=== PATIENT | female | born 1960 | race Caucasian/White ===

== ENCOUNTER 2018-10-17 15:35 | Emergency (ER) | payer BC, OTHER ==
[2018-10-17] MEDS ORDERED: METHYLPREDNISOLONE 125 MG INJ ONE (16:04)
[2018-10-17] MEDS ORDERED: FAMOTIDINE 20 MG/2 ML VIAL IV ONE (16:04)
[2018-10-17] MEDS ORDERED: DIPHENHYDRAMINE 50 MG/ML VIAL ONE (16:04)
[2018-10-17] MEDS ORDERED: hydrOXYzine HCl 25 MG TAB ONE (16:24)
[2018-10-17 16:34] LABS: Absolute Lymphocytes (CBC) 1.9 K/uL (0.7-4.9); Absolute Monocytes 0.4 K/uL (0.1-1.3); Absolute Neutrophil 3.3 K/uL (1.8-8.0); Basophils % 0.9 % (0-1.3); Eosinophils % 3.4 % (0-4.4); Hematocrit 40.1 % (36.0-45.0); Lymphocytes % 32.9 % (15.3-44.8); MPV 8.6 fL (7.6-11.3); Monocytes % 7.1 % (3.3-12.3); RBC Red Blood Cell Count 4.36 M/uL (3.86-4.86)
[2018-10-17 16:48] LABS: Protime INR 0.97
[2018-10-17 16:51] LABS: BUN Blood Urea Nitrogen 15 mg/dL (7-18); Bicarbonate 26 mmol/L (21-32); Glucose Level 102 mg/dL (74-106); Potassium 3.7 mmol/L (3.5-5.1); Sodium Level 140 mmol/L (136-145)
[2018-10-17] MEDS ORDERED: DEXAMETHASONE 10 MG/ML VIAL ONE (17:19)
--- NOTE | 2018-10-17 17:34 | EDPHYS ---
Physician Documentation [facility] Name: Serenity Nevarez Age: 58 yrs Sex: Female : 1960 Arrival Date: 10/17/2018 Time: 15:40 Bed 25 Private MD: Halina Doty H ED Physician Kong Chang HPI: 10/17 15:54 This 58 yrs old Female presents to ER via Ambulatory with complaints of Rash. rn 15:54 The patient's rash thought to be caused by an unknown cause. The rash is located on the rn right leg and left leg. The rash can be described as erythematous, urticarial. Onset: The symptoms/episode began/occurred just prior to arrival. Severity of symptoms: At their worst the symptoms were moderate in the emergency department the symptoms are unchanged. The patient has not experienced similar symptoms in the past. Reports at work, began to notice itching to legs, got worse, + scratching without relief, no trouble breathing, denies new exposure or medication/food. Not sure if she got into poison eveline or anything.. Historical: - Allergies: 15:45 PENICILLINS; jl7 - Home Meds: 15:45 None [Active]; jl7 - PMHx: 15:45 Anxiety; Diabetes - NIDDM; Hypertension; Hypothyroidism; UTI; jl7 - Immunization history:: Adult Immunizations up to date. - Social history:: Smoking status: Patient/guardian denies using tobacco. - Ebola Screening: : No symptoms or risks identified at this time. - Family history:: not pertinent. - Hospitalizations: : No recent hospitalization is reported. ROS: 15:54 Constitutional: Negative for fever, chills, and weight loss, Eyes: Negative for injury, rn pain, redness, and discharge, ENT: Negative for injury, pain, and discharge, Neck: Negative for injury, pain, and swelling, Cardiovascular: Negative for chest pain, palpitations, and edema, Respiratory: Negative for shortness of breath, cough, wheezing, and pleuritic chest pain, Abdomen/GI: Negative for abdominal pain, nausea, vomiting, diarrhea, and constipation, MS/Extremity: Negative for injury and deformity, Skin: + rash to legs Neuro: Negative for headache, weakness, numbness, tingling, and seizure. Exam: 15:54 Constitutional: This is a well developed, well nourished patient who is awake, alert, rn scatching legs Skin: Warm, dry, + diffuse faint erythema to bilateral lower legs below knees with excoriations, a few spots on left leg look slightly petechial. Vital Signs: 15:45 BP 153 / 95; Pulse 98; Resp 16 S; Temp 97.9(O); Pulse Ox 100% on R/A; Weight 72.57 kg jl7 (R); Height 6 ft. 1 in. (185.42 cm) (R); Pain 10/10; 17:31 BP 151 / 68; Pulse 91; Resp 16; Temp 98.1; Pulse Ox 98% on R/A; la1 15:45 Body Mass Index 21.11 (72.57 kg, 185.42 cm) jl7 MDM: 15:48 Patient medically screened. rn 17:32 Differential diagnosis: allergic reaction. Data reviewed: vital signs, nurses notes, learning facilitator test result(s), and as a result, I will discharge patient. Counseling: I had a detailed discussion with the patient and/or guardian regarding: the historical points, exam findings, and any diagnostic results supporting the discharge/admit diagnosis, lab results, the need for outpatient follow up, to return to the emergency department if symptoms worsen or persist or if there are any questions or concerns that arise at home. Response to treatment: the patient's symptoms have markedly improved after treatment, and as a result, I will discharge patient. ED course: Pt feels much better, no longer itching, will dc home with steroids and hydroxyzine for allergic reaction/dermatitis to unknown reason. . 10/17 15:53 Order name: CBC with Diff; Complete Time: 16:56 rn 10/17 15:53 Order name: Basic Metabolic Panel; Complete Time: 16:56 rn 10/17 15:53 Order name: Protime (+inr); Complete Time: 16:56 rn 10/17 15:53 Order name: Ptt, Activated; Complete Time: 16:56 rn 10/17 15:53 Order name: IV Start; Complete Time: 16:06 rn Administered Medications: 16:05 Drug: SOLU-Medrol 125 mg Route: IVP; Site: left antecubital; la1 17:31 Follow up: Response: No adverse reaction la1 16:05 Drug: Pepcid 20 mg Route: IVP; Site: left antecubital; la1 17:31 Follow up: Response: No adverse reaction la1 16:06 Drug: Benadryl 50 mg Route: IVP; Site: left antecubital; la1 17:31 Follow up: Response: No adverse reaction la1 16:16 Drug: hydrOXYzine 50 mg Route: PO; la1 17:31 Follow up: Response: No adverse reaction; Marked relief of symptoms la1 17:17 Drug: Decadron - Dexamethasone 10 mg Route: IVP; Site: left antecubital; la1 17:32 Follow up: Response: Adverse reaction, Physician notified la1 Disposition: 10/17/18 17:33 Discharged to Home. Impression: Dermatitis, unspecified, Urticaria, unspecified. - Condition is Stable. - Discharge Instructions: Hives, Rash. - Prescriptions for Hydroxyzine HCl 50 mg Oral Tablet - take 1 tablet by ORAL route every 8 hours As needed for itching; 20 tablet. Prednisone 20 mg Oral Tablet - take 3 tablet by ORAL route once daily for 5 days; 15 tablet. - Medication Reconciliation Form, Thank You Letter, Antibiotic Education, Prescription Opioid Use form. - Follow up: Private Physician; When: As needed; Reason: Recheck today's complaints, Re-evaluation by your physician. - Problem is new. - Symptoms have improved. Signatures: Dispatcher [employer] EDMS Kong Chang MD MD rn Attema, Lee, RN RN la1 Carlos Dewey RN RN jl7 Corrections: (The following items were deleted from the chart) 17:45 17:33 10/17/2018 17:33 Discharged to Home. Impression: Dermatitis, unspecified; la1 Urticaria, unspecified. Condition is Stable. Forms are Work release form, Medication Reconciliation Form, Thank You Letter, Antibiotic Education, Prescription Opioid Use. Follow up: Private Physician; When: As needed; Reason: Recheck today's complaints, Re-evaluation by your physician. Problem is new. Symptoms have improved. rn
--- NOTE | 2018-10-17 17:34 | ER ---
Nurse's Notes [facility] Name: Serenity Nevarez Age: 58 yrs Sex: Female : 1960 Arrival Date: 10/17/2018 Time: 15:40 Bed 25 Private MD: Halina Doty H Diagnosis: Dermatitis, unspecified;Urticaria, unspecified Presentation: 10/17 15:43 Presenting complaint: Patient states: Legs started itching 2 hours ago, right leg is jl7 worse. Took 2 Benadryl and put calamine lotion and cortisone cream a couple hours ago and it's still itching like crazy. Transition of care: patient was not received from another setting of care. Onset of symptoms was October 17, 2018. Risk Assessment: Do you want to hurt yourself or someone else? Patient reports no desire to harm self or others. Initial Sepsis Screen: Does the patient meet any 2 criteria? No. Patient's initial sepsis screen is negative. Does the patient have a suspected source of infection? No. Patient's initial sepsis screen is negative. Care prior to arrival: None. 15:43 Method Of Arrival: Ambulatory jl7 15:43 Acuity: HUSAM 4 jl7 Triage Assessment: 15:45 General: Appears in no apparent distress. uncomfortable, Behavior is cooperative. Pain: jl7 Complains of pain in right leg and left leg Pain currently is 10 out of 10 on a pain scale. Quality of pain is described as ITCHING. Neuro: Level of Consciousness is awake, alert, obeys commands, Oriented to person, place, time, situation. Derm: Rash noted that is urticaria, on right leg and left leg. Historical: - Allergies: 15:45 PENICILLINS; jl7 - Home Meds: 15:45 None [Active]; jl7 - PMHx: 15:45 Anxiety; Diabetes - NIDDM; Hypertension; Hypothyroidism; UTI; jl7 - Immunization history:: Adult Immunizations up to date. - Social history:: Smoking status: Patient/guardian denies using tobacco. - Ebola Screening: : No symptoms or risks identified at this time. - Family history:: not pertinent. - Hospitalizations: : No recent hospitalization is reported. Screenin:06 Abuse screen: Denies threats or abuse. Nutritional screening: No deficits noted. la1 Nutritional screening: No deficits noted. Tuberculosis screening: No symptoms or risk factors identified. Fall Risk None identified. Assessment: 16:06 General: Appears in no apparent distress. Behavior is calm, cooperative. Pain: Denies la1 pain. Neuro: Level of Consciousness is awake, alert, obeys commands, Oriented to person, place, time, situation. Cardiovascular: Capillary refill < 3 seconds Patient's skin is warm and dry. Respiratory: Airway is patent Respiratory effort is even, unlabored, Respiratory pattern is regular, symmetrical. GI: No signs and/or symptoms were reported involving the gastrointestinal system. : No signs and/or symptoms were reported regarding the genitourinary system. Derm: Rash noted that is itchy, red, urticaria, on right leg and left leg. Vital Signs: 15:45 BP 153 / 95; Pulse 98; Resp 16 S; Temp 97.9(O); Pulse Ox 100% on R/A; Weight 72.57 kg jl7 (R); Height 6 ft. 1 in. (185.42 cm) (R); Pain 10/10; 17:31 BP 151 / 68; Pulse 91; Resp 16; Temp 98.1; Pulse Ox 98% on R/A; la1 15:45 Body Mass Index 21.11 (72.57 kg, 185.42 cm) jl7 ED Course: 15:40 Patient arrived in ED. mr 15:41 Halina Doty DO is Private Physician. mr 15:45 Triage completed. jl7 15:45 Arm band placed on right wrist. jl7 15:47 Kong Chang MD is Attending Physician. rn 16:05 Matty Banerjee RN is Primary Nurse. la1 16:06 Call light in reach. la1 16:06 No provider procedures requiring assistance completed. Inserted saline lock: 22 gauge la1 in left antecubital area, using aseptic technique. Blood collected. 17:32 IV discontinued, intact, bleeding controlled, No redness/swelling at site. Pressure la1 dressing applied. Administered Medications: 16:05 Drug: SOLU-Medrol 125 mg Route: IVP; Site: left antecubital; la1 17:31 Follow up: Response: No adverse reaction la1 16:05 Drug: Pepcid 20 mg Route: IVP; Site: left antecubital; la1 17:31 Follow up: Response: No adverse reaction la1 16:06 Drug: Benadryl 50 mg Route: IVP; Site: left antecubital; la1 17:31 Follow up: Response: No adverse reaction la1 16:16 Drug: hydrOXYzine 50 mg Route: PO; la1 17:31 Follow up: Response: No adverse reaction; Marked relief of symptoms la1 17:17 Drug: Decadron - Dexamethasone 10 mg Route: IVP; Site: left antecubital; la1 17:32 Follow up: Response: Adverse reaction, Physician notified la1 Outcome: 17:32 Discharged to home ambulatory. la1 17:32 Condition: stable 17:32 Discharge instructions given to patient, Instructed on discharge instructions, follow up and referral plans. medication usage, Demonstrated understanding of instructions, follow-up care, medications, Prescriptions given X 2. 17:33 Discharge ordered by . rn 17:45 Patient left the ED. la1 Signatures: Jaz Lassiter Roman, MD MD rn Attema, Lee, RN RN la1 Calros Dewey RN RN jl7
[2018-10-17 18:38] VITALS: BP 151/68; TEMP 98.1; O2SAT 98
== END 2018-10-17 17:45 | disposition home or self-care (01) ==
LOC: ER 15:35
DX: L30.9 Dermatitis, unspecified (principal); L50.9 Urticaria, unspecified; I10 Essential (primary) hypertension; Z88.0 Allergy status to penicillin
CPT/HCPCS: 36415; 80048; 85025; 85610; 85730; 96374; 96375; 99284; J1100; J2930

== ENCOUNTER 2020-06-29 10:47 | Emergency (ER) | payer OTHER ==
--- NOTE | 2020-06-29 11:53 | RAD REPORT ---
EXAM DESCRIPTION: RAD - Chest Single View - 06/29/2020 11:37 am CLINICAL HISTORY: Dizziness Chest pain. COMPARISON: Chest Single View dated 03/27/2017; CHEST SINGLE VIEW dated 11/23/2015; CHEST PA AND LAT 2 VIEW dated 09/11/2012; CHEST SINGLE VIEW dated 06/04/2012 FINDINGS: Portable technique limits examination quality. Small calcified granuloma seen left mid lung. The lungs are otherwise clear. The heart is normal in s ize. No displaced fractures. IMPRESSION: No acute intrathoracic process suspected.
[2020-06-29] MEDS ORDERED: NA CHLORIDE 0.9% 1,000 ML ONE ×2 (12:01→12:46)
[2020-06-29 12:22] LABS: Absolute Lymphocytes (CBC) 1.5 K/uL (0.7-4.9); Basophils % 0.5 % (0-1.3); Hematocrit 41.6 % (36.0-45.0); Lymphocytes % 26.9 % (15.3-44.8); MPV 8.9 fL (7.6-11.3); Protime INR 1.03; RBC Red Blood Cell Count 4.62 M/uL (3.86-4.86)
[2020-06-29 12:43] LABS: ALT/SGPT 48 U/L (12-78); AST/SGOT 23 U/L (15-37); Albumin 3.8 g/dL (3.4-5.0); Alkaline Phosphatase 109 U/L (45-117); BUN Blood Urea Nitrogen 17 mg/dL (7-18); Bicarbonate 26 mmol/L (21-32); Bilirubin Direct 0.2 mg/dL (0-0.2); Bilirubin Total 0.4 mg/dL (0.2-1.0); Glucose Level 103 mg/dL (74-106); Magnesium 2.2 mg/dL (1.8-2.4); NT PRO-BNP 67 pg/mL (<125); Potassium 4.1 mmol/L (3.5-5.1); Protein, Total 7.7 g/dL (6.4-8.2); Sodium Level 137 mmol/L (136-145); Troponin (Emerg Dept Use Only) < 0.02 ng/mL (0.0-0.045)
--- NOTE | 2020-06-29 14:51 | EDPHYS ---
Physician Documentation [facility] Name: Serenity Nevarez Age: 59 yrs Sex: Female : 1960 Arrival Date: 06/29/2020 Time: 10:53 Bed 7 Private MD: Halina Doty H ED Physician Kong Chang HPI: 06/29 11:16 This 59 yrs old Female presents to ER via Ambulatory with complaints of Blood pm1 Pressure Problem, Dizziness. 11:16 The patient presents with sense of spinning. Onset: The symptoms/episode began/occurred pm1 3 day(s) ago. Context: occurred while the patient was changing position. just prior to the episode the patient experienced no apparent symptoms. Modifying factors: The symptoms are alleviated by lying down, the symptoms are aggravated by changing position. Associated signs and symptoms: Pertinent negatives: abdominal pain, chest pain, focal weakness, shortness of breath, syncope. Severity of symptoms: in the emergency department the symptoms are worse. Patient has been on a special diet and has been taking phentermine. Decreased appetite and has not been eating or drinking well. Historical: - Allergies: 11:07 PENICILLINS; iw ROS: 11:16 Constitutional: Negative for fever, chills, and weight loss, Eyes: Negative for injury, pm1 pain, redness, and discharge, ENT: Negative for injury, pain, and discharge, Neck: Negative for injury, pain, and swelling, Cardiovascular: Negative for chest pain, palpitations, and edema, Respiratory: Negative for shortness of breath, cough, wheezing, and pleuritic chest pain, Abdomen/GI: Negative for abdominal pain, nausea, vomiting, diarrhea, and constipation, Back: Negative for injury and pain, MS/Extremity: Negative for injury and deformity, Skin: Negative for injury, rash, and discoloration. 11:16 Neuro: Positive for dizziness, Negative for numbness, tingling, weakness. Exam: 11:16 Constitutional: This is a well developed, well nourished patient who is awake, alert, pm1 and in no acute distress. Head/Face: Normocephalic, atraumatic. Cardiovascular: Regular rate and rhythm with a normal S1 and S2. No gallops, murmurs, or rubs. Normal PMI, no JVD. No pulse deficits. Respiratory: Lungs have equal breath sounds bilaterally, clear to auscultation and percussion. No rales, rhonchi or wheezes noted. No increased work of breathing, no retractions or nasal flaring. Abdomen/GI: Soft, non-tender, with normal bowel sounds. No distension or tympany. No guarding or rebound. No evidence of tenderness throughout. Back: No spinal tenderness. No costovertebral tenderness. Full range of motion. Skin: Warm, dry with normal turgor. Normal color with no rashes, no lesions, and no evidence of cellulitis. MS/ Extremity: Pulses equal, no cyanosis. Neurovascular intact. Full, normal range of motion. 11:16 Neuro: Exam negative for acute changes, Orientation: is normal, Mentation: is normal, Motor: is normal, moves all fours, Sensation: is normal, no obvious gross deficits. Vital Signs: 11:06 BP 115 / 76; Pulse 088; Resp 16; Temp 97.5; Pulse Ox 100% on R/A; iw 11:37 BP 122 / 69 LA Supine; Pulse 82; Resp 16; Pulse Ox 99% on R/A; dh3 11:39 BP 105 / 53 LA Sitting; Pulse 91; Resp 17; Pulse Ox 100% on R/A; dh3 11:41 BP 77 / 46 LA Standing; Pulse 104; Resp 19; Pulse Ox 100% on R/A; dh3 12:18 BP 107 / 83; Pulse 78; Resp 18; Pulse Ox 99% on R/A; em 13:35 BP 124 / 62; Pulse 62; Resp 18; Pulse Ox 100% on R/A; Pain 0/10; em 15:03 BP 147 / 68 LA Supine; Pulse 74; Resp 16; Pulse Ox 100% on R/A; dh3 15:05 BP 131 / 78 LA Sitting; Pulse 79; Resp 17; Pulse Ox 100% on R/A; dh3 15:07 BP 118 / 65 LA Standing; Pulse 88; Resp 17; Pulse Ox 100% on R/A; dh3 MDM: 10:59 Patient medically screened. pm1 14:49 Data reviewed: vital signs. Data interpreted: Pulse oximetry: on room air is 100 %. pm1 Interpretation: normal. Counseling: I had a detailed discussion with the patient and/or guardian regarding: the historical points, exam findings, and any diagnostic results supporting the discharge/admit diagnosis, lab results, radiology results, the need for outpatient follow up, to return to the emergency department if symptoms worsen or persist or if there are any questions or concerns that arise at home. 14:49 ED course: Symptoms markedly improved with NS given in the ER. pm06/29 11:12 Order name: Basic Metabolic Panel; Complete Time: 12:44 pm06/29 11:12 Order name: CBC with Diff; Complete Time: 12:33 pm06/29 11:12 Order name: LFT's; Complete Time: 12:44 pm06/29 11:12 Order name: Magnesium; Complete Time: 12:44 pm06/29 11:12 Order name: NT PRO-BNP; Complete Time: 12:44 pm06/29 11:12 Order name: PT-INR; Complete Time: 12:33 pm06/29 11:12 Order name: Troponin (emerg Dept Use Only); Complete Time: 12:44 pm06/29 11:12 Order name: XRAY Chest (1 view); Complete Time: 12:03 pm06/29 11:12 Order name: EKG; Complete Time: 11:12 pm06/29 11:12 Order name: Cardiac monitoring; Complete Time: 12:11 pm06/29 11:12 Order name: EKG - Nurse/Tech; Complete Time: 12:00 pm06/29 11:12 Order name: TSH; Complete Time: 12:44 pm06/29 11:12 Order name: IV Saline Lock; Complete Time: 12:11 pm06/29 11:12 Order name: Labs collected and sent; Complete Time: 12:11 pm06/29 11:12 Order name: O2 Per Protocol; Complete Time: 12:01 pm06/29 11:12 Order name: O2 Sat Monitoring; Complete Time: 12:01 pm06/29 11:12 Order name: Orthostatic Blood Pressure; Complete Time: 12:00 pm1 Administered Medications: 12:10 Drug: NS 0.9% 1000 ml Route: IV; Rate: 1000 ml; Site: right forearm; em 13:30 Follow up: IV Status: Completed infusion; IV Intake: 1000ml em 13:39 Drug: NS 0.9% 1000 ml Route: IV; Rate: 1000 ml; Site: right forearm; em 15:10 Follow up: IV Status: Completed infusion; IV Intake: 1000ml em Disposition: 17:47 Co-signature as Attending Physician, Kong Chang MD. rn Disposition: 06/29/20 14:50 Discharged to Home. Impression: Orthostatic hypotension, Dehydration. - Condition is Stable. - Discharge Instructions: Dehydration, Adult, Orthostatic Hypotension, Rehydration, Adult. - Medication Reconciliation Form, Thank You Letter, Antibiotic Education, Prescription Opioid Use form. - Follow up: Emergency Department; When: As needed; Reason: Worsening of condition. Follow up: Private Physician; When: 2 - 3 days; Reason: Recheck today's complaints, Continuance of care, Re-evaluation by your physician. - Problem is new. - Symptoms have improved. Signatures: Dispatcher [employer] Ricky Sher RN RN em Williams, Irene, RN RN iw Nieto, Roman, MD MD rn Marinas, Patrick, OUTSOLE BEVELER OUTSOLE BEVELER pm1 Corrections: (The following items were deleted from the chart) 15:52 14:50 06/29/2020 14:50 Discharged to Home. Impression: Orthostatic em hypotensionDehydration. Condition is Stable. Forms are Medication Reconciliation Form, Thank You Letter, Antibiotic Education, Prescription Opioid Use. Follow up: Emergency Department; When: As needed; Reason: Worsening of condition. Follow up: Private Physician; When: 2 - 3 days; Reason: Recheck today's complaints, Continuance of care, Re-evaluation by your physician. Problem is new. Symptoms have improved. pm1
--- NOTE | 2020-06-29 14:51 | ER ---
Nurse's Notes [facility] Name: Serenity Nevarez Age: 59 yrs Sex: Female : 1960 Arrival Date: 06/29/2020 Time: 10:53 Bed 7 Private MD: Halina Doty H Diagnosis: Dehydration;Orthostatic hypotension Presentation: 06/29 11:04 Chief complaint: Patient states: had some low BP readings at home this morning, has iw been feeling weak, dizzy over the weekend, has been on on a diet and not eating as much or drinking as much fluids. Coronavirus screen: At this time, the client does not indicate any symptoms associated with coronavirus-19. Ebola Screen: Patient negative for fever greater than or equal to 101.5 degrees Fahrenheit, and additional compatible Ebola Virus Disease symptoms Patient denies exposure to infectious person. Patient denies travel to an Ebola-affected area in the 21 days before illness onset. No symptoms or risks identified at this time. Initial Sepsis Screen: Does the patient meet any 2 criteria? No. Patient's initial sepsis screen is negative. Does the patient have a suspected source of infection? No. Patient's initial sepsis screen is negative. Risk Assessment: Do you want to hurt yourself or someone else? Patient reports no desire to harm self or others. Onset of symptoms was June 27, 2020. 11:04 Method Of Arrival: Ambulatory iw 11:04 Acuity: HUSAM 3 iw Historical: - Allergies: 11:07 PENICILLINS; iw Screenin:30 Abuse screen: Denies threats or abuse. Nutritional screening: No deficits noted. em Tuberculosis screening: No symptoms or risk factors identified. Fall Risk Secondary diagnosis (15 points) dizziness . Assessment: 11:30 General: Appears in no apparent distress. comfortable, Behavior is calm, cooperative, em appropriate for age, Denies fever. Pain: Denies pain. Neuro: Level of Consciousness is awake, alert, obeys commands, Oriented to person, place, time, situation, Appropriate for age Reports dizziness. Cardiovascular: Capillary refill < 3 seconds Patient's skin is warm and dry. Respiratory: Airway is patent Respiratory effort is even, unlabored, Respiratory pattern is regular, symmetrical. GI: Patient currently denies nausea, vomiting. Derm: Skin is intact, is healthy with good turgor, Skin is pink, warm \T\ dry. Musculoskeletal: Capillary refill < 3 seconds, Range of motion: intact in all extremities. 12:37 Reassessment: Patient appears in no apparent distress at this time. Patient and/or em family updated on plan of care and expected duration. Pain level reassessed. Patient is alert, oriented x 3, equal unlabored respirations, skin warm/dry/pink. 13:43 Reassessment: Patient appears in no apparent distress at this time. Patient and/or em family updated on plan of care and expected duration. Pain level reassessed. Patient is alert, oriented x 3, equal unlabored respirations, skin warm/dry/pink. ambulated to restroom, reports feeling better. Vital Signs: 11:06 BP 115 / 76; Pulse 088; Resp 16; Temp 97.5; Pulse Ox 100% on R/A; iw 11:37 BP 122 / 69 LA Supine; Pulse 82; Resp 16; Pulse Ox 99% on R/A; dh3 11:39 BP 105 / 53 LA Sitting; Pulse 91; Resp 17; Pulse Ox 100% on R/A; dh3 11:41 BP 77 / 46 LA Standing; Pulse 104; Resp 19; Pulse Ox 100% on R/A; dh3 12:18 BP 107 / 83; Pulse 78; Resp 18; Pulse Ox 99% on R/A; em 13:35 BP 124 / 62; Pulse 62; Resp 18; Pulse Ox 100% on R/A; Pain 0/10; em 15:03 BP 147 / 68 LA Supine; Pulse 74; Resp 16; Pulse Ox 100% on R/A; dh3 15:05 BP 131 / 78 LA Sitting; Pulse 79; Resp 17; Pulse Ox 100% on R/A; dh3 15:07 BP 118 / 65 LA Standing; Pulse 88; Resp 17; Pulse Ox 100% on R/A; dh3 ED Course: 10:53 Patient arrived in ED. ds1 10:53 Halina Doty DO is Private Physician. ds1 10:56 Ricky Kay, RUBEN is Primary Nurse. em 10:59 Francisco Haines NP is PHCP. pm1 10:59 Kong Chang MD is Attending Physician. pm1 11:06 Triage completed. iw 11:30 Patient has correct armband on for positive identification. Placed in gown. Bed in low em position. Call light in reach. Side rails up X2. blueprinter on. Pulse ox on. NIBP on. 11:35 EKG done, by ED staff, reviewed by Francisco Haines NP. 3 11:36 XRAY Chest (1 view) In Process Unspecified. EDMS 11:47 Missed attempt(s): 20 gauge in left antecubital area. Bleeding controlled, band aid dh3 applied, catheter tip intact. 12:10 Initial lab(s) drawn, by me, sent to lab. Inserted saline lock: 22 gauge in right em forearm, using aseptic technique. Blood collected. 15:49 No provider procedures requiring assistance completed. IV discontinued, intact, em bleeding controlled, No redness/swelling at site. Pressure dressing applied. Administered Medications: 12:10 Drug: NS 0.9% 1000 ml Route: IV; Rate: 1000 ml; Site: right forearm; em 13:30 Follow up: IV Status: Completed infusion; IV Intake: 1000ml em 13:39 Drug: NS 0.9% 1000 ml Route: IV; Rate: 1000 ml; Site: right forearm; em 15:10 Follow up: IV Status: Completed infusion; IV Intake: 1000ml em Intake: 13:30 IV: 1000ml; Total: 1000ml. em 15:10 IV: 1000ml; Total: 2000ml. em Outcome: 14:50 Discharge ordered by MD. pm1 15:49 Discharged to home ambulatory, with family. em 15:49 Condition: stable 15:49 Discharge instructions given to patient, Instructed on discharge instructions, follow up and referral plans. Demonstrated understanding of instructions, follow-up care. 15:52 Patient left the ED. em Signatures: Dispatcher [employer] EDMA Ricky Kay RN RN em Sanford, Demi ds1 Ashley Mcneill RN RN iw Marinas, Patrick, NP WATER POLLUTION CONTROL INSPECTOR pm1 Adelita Amado 3
[2020-06-29 16:00] VITALS: TEMP 97.5
[2020-06-29 16:21] VITALS: O2SAT 100
[2020-06-29 16:24] VITALS: BP 118/65
--- NOTE | 2020-06-30 12:19 | EKG ---
Test Date: 2020-06-29 Test Time: 11:35:04 Control Technician: PARISA MEASUREMENT RESULTS: Intervals: Rate: 80 IA: 168 QRSD: 70 QT: 390 QTc: 449 [place]: P: 57 IA: 168 QRS: 59 T: 64 INTERPRETIVE STATEMENTS: Normal sinus rhythm Normal ECG Compared to ECG 03/27/2017 09:02:22 No significant changes Electronically Signed On 06-30-20 12:15:15 CDT by Lucio Powers
== END 2020-06-29 15:52 | disposition home or self-care (01) ==
LOC: ER 10:47
DX: I95.1 Orthostatic hypotension (principal); E86.0 Dehydration; Z88.0 Allergy status to penicillin
CPT/HCPCS: 96361; 93005; 85025; 80048; 36415; 83735; 85610; 80076; 84443; 84484; 83880; 71045; 96360; 99285; J7030 ×2

== ENCOUNTER 2023-06-08 07:50 | Emergency (ER) | payer OTHER ==
--- OUTSIDE RECORDS SUMMARY | 2023-06-08 07:53 | XMS REPORT | Continuity of Care Document ---
:1960 Author Organization [facility] t Address [address] [place] [address] [place] [id number] Care Team Providers Name Role Phone Mariano Reddy Attending Clinician Problems Condition Condition Condition Status Onset Resolution Last Treating Co mments Source Name Details Category Date Date Treatment Clinician Date Amnesia Amnesia Problem Active 2021-01-14 Me moria (finding) (finding) 21:34:46 l Active [place] Problem 01/14/2021 [facility] Asthma Asthma Problem Active 2021-01-14 Jim qamar (disorder) (disorder) 21:34:46 l Active [place] Problem 01/14/2021 [facility] Ataxia Ataxia Problem Active 2021-01-14 Mem oria (finding) (finding) 21:34:46 l Active [place] Problem 01/14/2021 [facility] Hypothyroi Hypothyro Problem Active 2021-01-14 Memoria dism idism 21:34:46 l (disorder) (disorder) He rmann Active Problem 01/14/2021 [facility] Lumbar Lumbar Problem Active 2021-01-14 Jim qamar radiculopa radiculopa 21:34:46 l thy thy Song (disorder) (disorder) Active Problem 01/14/2021 [facility] Lumbar Lumbar Problem Active 2021-01-14 Jim qamar spondylosi spondylosi 21:34:46 l s s [place] (disorder) (disorder) Active Problem 01/14/2021 [facility] Paresthesi Paresthes Problem Active 2021-01-14 Memoria a ia 21:34:46 l (finding) (finding) Herm lamar Active Problem 01/14/2021 [facility] Scoliosis Scoliosis Problem Active 2021-01-14 Memoria deformity deformity 21:34:46 l of spine of spine Claude n (disorder) (disorder) Active Problem 01/14/2021 [facility] Allergies, Adverse Reactions, Alerts Allergy Allergy Status Severity Reaction(s) Onset Inactive Treating Comm ents Source Name Type Date Date Clinician penicill penicill Active Memori a in in l [place] Social History Social Habit Start Date Stop Date Quantity Comments Source Social History 2020-12-04 2020-12-04 [facility] 14:26:43 14:26:43 Medications Ordered Filled Start Stop Current Ordering Indication Dosage Frequency Signature Comments Components Source Medication Medication Date Date Medication? 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, Weight acetaminoph Yes 30 mg =, Me moria en-codeine 2-09 PO, Q6H, 0 l #3 22:03: Refill(s) Song 00 Naproxen Yes 500 mg, Memori a 2-09 PO, BID, 0 l 22:03: Refill(s) Song 00 Trazodone Yes 100 mg, Memor ia 2-09 PO, Daily, l 22:03: 0 Song 00 Refill(s) 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 Yes 60 mg, PO, M emoria 2-09 Daily, 0 l 22:03: Refill(s) [place] 00 Vital Signs Vital Name Observation Time Observation Value Comments Source Systolic (mm Hg) 2020-12-04 14:24:00 Jim rial [place] Diastolic (mm Hg) 2020-12-04 14:24:00 Mem orial Song Heart Rate 2020-12-04 14:24:00 Memorial [place] Respitory Rate 2020-12-04 14:24:00 Memori al [place] Height 2020-12-04 14:24:00 175.26 cm Memorial [place] Weight 2020-12-04 14:24:00 Memorial Song BMI Calculated 2020-12-04 14:24:00 Memori al [place] Systolic (mm Hg) 2020-11-17 21:43:00 Jim rial Song Diastolic (mm Hg) 2020-11-17 21:43:00 Mem orial Song Heart Rate 2020-11-17 21:43:00 [facility] [place] Respitory Rate 2020-11-17 21:43:00 Memori al Song Height 2020-11-17 21:43:00 182.88 cm [facility] [place] Weight 2020-11-17 21:43:00 [facility] [place] BMI Calculated 2020-11-17 21:43:00 Memori al [place] Procedures Procedure Date / Time Performed Performing Clinician Sourevan e Appendectomy Memorial Song Encounters Start End Encounter Admission Attending Care Care Encounter Source Date/Time Date/Time Type Type Clinicians Facility Department ID 2022-09-15 Outpatient STREGENCY MERIDIAN [id number] Common 14:20:07 [id number] [facility] 2021-01-12 2021-01-12 Ambulatory nullFlavo MNA [id number] Memoria 14:45:00 14:45:00 Pre-Reg r Neurology 02 barbra Zuleta 2021-01-12 2021-01-12 Outpatient MHIE DEBBIE [id number] Memoria 09:45:00 09:45:00 02 barbra Zuleta 2021-01-12 2021-01-12 Outpatient ROSHAN ReddySCHJOSE ANGEL [id number] 09:45:00 09:45:00 Mariano Eva Barber 2020-12-04 2020-12-05 Outpatient nullFlavo MNA [id number] Memoria 14:15:00 05:59:59 r Neurology 01 l Donte Zuleta 2020-12-04 2020-12-04 Outpatient LEONARDA ReddySCHER MHMISCHER [id number] 08:15:00 23:59:59 Mariano 01 Sunil 2020-12-04 2020-12-04 Outpatient MHIE MHIE [id number] Memoria 08:15:00 08:15:00 01 barbra Zuleta 2020-12-01 2020-12-03 Outside nullFlavo MNA [id number] Memoria 19:50:14 05:59:59 Medical r Neurology 00 l Records Donte Zuleta 2020-12-01 2020-12-02 Outpatient MHMISCHER MHMISCHER [id number] 13:50:14 23:59:59 00 2020-11-17 2020-11-18 Outpatient nullFlavo MNA [id number] Memoria 21:30:00 05:59:59 r Neurology 00 l Donte Zuleta 2020-11-17 2020-11-17 Outpatient ROSHAN ReddySCHER [id number] 15:30:00 23:59:59 Mariano 00 Sunil 2020-11-17 2020-11-17 Outpatient MHGREGORIO LEWIS [id number] Memoria 15:30:00 15:30:00 00 l Song Results This patient has no known results.
[2023-06-08 08:29] LABS: Absolute Lymphocytes (CBC) 0.9 K/uL (0.7-4.9); Hematocrit 40.4 % (36.0-45.0); Lymphocytes % 16.1 % (15.3-44.8); MCV 91.4 fL (80-100); MPV 7.3 fL (7.6-11.3); Platelets 234 thou/uL (152-406); RBC Red Blood Cell Count 4.42 M/uL (3.86-4.86)
--- NOTE | 2023-06-08 08:30 | RAD REPORT ---
EXAM DESCRIPTION: Nathalia Single View06/08/2023 8:13 am CLINICAL HISTORY: Chest pain COMPARISON: 2019 FINDINGS: Lungs are mildly to moderately hyperaerated The lungs appear clear of acute infiltrate. The heart is normal size IMPRESSION: No acute abnormalities displayed
[2023-06-08 08:32] LABS: Protime INR 1.05
[2023-06-08 08:52] LABS: Albumin 3.9 g/dL (3.4-5.0); Bilirubin Direct 0.1 mg/dL (0-0.2); Bilirubin Indirect, Calculated 0.4 mg/dL (0.2-0.8); Bilirubin Total 0.5 mg/dL (0.2-1.0); Magnesium 2.5 mg/dL (1.6-2.4); Potassium 4.3 mEq/L (3.5-5.1); Protein, Total 7.4 g/dL (6.4-8.2); Troponin High Sensitivity 5.7 pg/mL (<58.9)
[2023-06-08 09:23] LABS: Specific Gravity 1.024 (1.005-1.030); Transitional Epithelial <5 /HPF (None Seen); Urine Bacteria <20 /HPF (<20); Urine Bilirubin NEGATIVE (Negative); Urine Blood Negative (Negative); Urine Clarity Extremely Turbid (Clear); Urine Color Yellow (Yellow); Urine Glucose NEGATIVE (Negative); Urine Mucus Slight /HPF (None Seen); Urine Protein TRACE (Negative); Urine RBC <5 /HPF (None Seen); Urine Urobilinogen Normal (Normal)
[2023-06-08] MEDS ORDERED: CEFTRIAXONE 1000 MG/VIAL ONE (09:54)
[2023-06-08] MEDS ORDERED: NA CHLORIDE 0.9% 1,000 ML ONE (09:55)
--- NOTE | 2023-06-08 10:12 | ER ---
Nurse's Notes [facility] Name: Serenity Nevarez Age: 62 yrs Sex: Female : 1960 Arrival Date: 06/08/2023 Time: 07:50 Bed 4 Private MD: Diagnosis: Dehydration;Orthostatic hypotension Presentation: 06/08 08:00 Chief complaint: Patient states: CP that radiates into L back since yesterday. Feels ll1 weak and dehydrated. Coronavirus screen: Vaccine status: Patient reports receiving the 2nd dose of the covid vaccine. Client denies travel out of the [place] in the last 14 days. At this time, the client does not indicate any symptoms associated with coronavirus-19. Ebola Screen: Patient denies travel to an Ebola-affected area in the 21 days before illness onset. Initial Sepsis Screen: Does the patient meet any 2 criteria? HR > 90 bpm. No. Patient's initial sepsis screen is negative. Does the patient have a suspected source of infection? No. Patient's initial sepsis screen is negative. Risk Assessment: Do you want to hurt yourself or someone else? Patient reports no desire to harm self or others. Onset of symptoms was June 07, 2023. 08:00 Method Of Arrival: Ambulatory ll1 08:00 Acuity: HUSAM 3 ll1 Triage Assessment: 08:01 General: Appears uncomfortable, Behavior is calm, cooperative, appropriate for age. ll1 General: Reports feeling dehydrated. Pain: Complains of pain in chest Pain currently is 8 out of 10 on a pain scale. Neuro: Reports weakness. Cardiovascular: Reports chest pain, fatigue. Historical: - Allergies: 07:59 PENICILLINS; ll1 - PMHx: 07:59 Anxiety; Diabetes - NIDDM; Hypertension; Hypothyroidism; UTI; COPD; ll1 - PSHx: 07:59 Appendectomy; leg SX; ll1 - Immunization history:: Client reports receiving the 2nd dose of the Covid vaccine. - Social history:: Smoking status: Patient denies any tobacco usage or history of. Screenin:24 [facility] ED Fall Risk Assessment (Adult) History of falling in the last 3 months, ld1 including since admission No falls in past 3 months (0 pts). Abuse screen: Denies threats or abuse. Denies injuries from another. Nutritional screening: No deficits noted. Tuberculosis screening: No symptoms or risk factors identified. Assessment: 08:24 General: Appears in no apparent distress. comfortable, Behavior is calm, cooperative, ld1 appropriate for age. Pain: Complains of pain in chest Pain does not radiate. Pain currently is 3 out of 10 on a pain scale. Quality of pain is described as throbbing, Pain began gradually, Is intermittent. Neuro: Level of Consciousness is awake, alert, obeys commands, Oriented to person, place, time, situation. Cardiovascular: Capillary refill < 3 seconds Patient's skin is warm and dry. Rhythm is sinus rhythm. Cardiovascular: Chest pain is described as mild. Respiratory: Airway is patent Respiratory effort is even, unlabored. GI: Abdomen is round non-distended. : No signs and/or symptoms were reported regarding the genitourinary system. EENT: No signs and/or symptoms were reported regarding the EENT system. Derm: No signs and/or symptoms reported regarding the dermatologic system. Musculoskeletal: No signs and/or symptoms reported regarding the musculoskeletal system. Vital Signs: 08:00 BP 120 / 59; Pulse 108; Resp 17; Temp 97.8; Pulse Ox 98% ; Weight 90.72 kg; Height 6 ll1 ft. 1 in. ; Pain 8/10; 08:00 BP 140 / 85 Supine; Pulse 104; ld1 08:04 BP 136 / 73 LA Sitting; Pulse 97; ld1 08:08 BP 81 / 37 Standing; Pulse 100; ld1 08:24 BP 132 / 84; Pulse 94; Resp 14; Pulse Ox 96% on R/A; ld1 08:59 BP 128 / 78; Pulse 95; Resp 16; Pulse Ox 100% on R/A; ld1 09:47 BP 127 / 86; Pulse 84; Resp 15; Pulse Ox 100% on R/A; ld1 10:31 BP 131 / 82; Pulse 82; Resp 18; Pulse Ox 99% on R/A; ko1 08:00 Body Mass Index 26.39 (90.72 kg, 185.42 cm) ll1 08:00 Pain Scale: Adult ll1 ED Course: 07:52 Patient arrived in ED. rg4 07:52 [facility] jh7 07:52 Kong Chang MD is Attending Physician. jh7 07:59 Arm band placed on Patient placed in an exam room, on a stretcher. ll1 08:01 Triage completed. ll1 08:15 XRAY Chest (1 view) In Process Unspecified. EDNY 08:22 Amparo Gamez, RN is Primary Nurse. ld1 08:22 No provider procedures requiring assistance completed. Inserted saline lock: 20 gauge ld1 in left antecubital area, using aseptic technique. Blood collected. 08:24 Patient has correct armband on for positive identification. Placed in gown. Bed in low ld1 position. Call light in reach. Side rails up X2. monitoring specialist on. Pulse ox on. NIBP on. Door closed. Noise minimized. Warm blanket given. 08:24 Patient maintains SpO2 saturation greater than 95% on room air. ld1 09:08 Urinalysis W/Microscopic Sent. ll1 10:31 Provided Education on: n/a. ko1 10:31 IV discontinued, intact, bleeding controlled, No redness/swelling at site. Pressure ko1 dressing applied. Administered Medications: 08:22 Drug: NS 0.9% IV 1000 ml Route: IV; Rate: 1 bolus; Site: left antecubital; ld1 09:47 Drug: Rocephin IV 1 grams Route: IV; Rate: 1 calculated rate; Site: left antecubital; ld1 09:47 Drug: NS 0.9% IV 1000 ml Route: IV; Rate: 1 bolus; Site: left antecubital; ld1 Medication: 08:24 VIS not applicable for this client. ld1 Outcome: 10:11 Discharge ordered by MD. pardo 10:31 Discharged to home ambulatory, with family. ko1 10:31 Condition: improved 10:31 Discharge instructions given to patient, family, Instructed on discharge instructions, follow up and referral plans. Demonstrated understanding of instructions, follow-up care. 10:32 Patient left the ED. ko1 Signatures: Dispatcher [employer] EDMS Alicia Simon rg4 Jose Guzman RN RN ll1 Amparo Gamez, RN RN ld1 Addie Jonas, ONCOLOGIST ONCOLOGIST 7 Aviva Case, RUBEN RN ko1
--- NOTE | 2023-06-08 10:12 | EDPHYS ---
Physician Documentation [facility] Name: Serenity Nevarez Age: 62 yrs Sex: Female : 1960 Arrival Date: 06/08/2023 Time: 07:50 Bed 4 Private MD: ED Physician Kong Chang HPI: 06/08 07:55 This 62 yrs old Female presents to ER via Ambulatory with complaints of Chest Pain, jh7 Back Pain. 07:55 Onset: The symptoms/episode began/occurred yesterday. Associated signs and symptoms: jh7 Pertinent positives: chest pain, Pertinent negatives: abdominal pain, headache, shortness of breath, sore throat, vomiting, wheezing. 62-year-old female presents for epigastric pain radiating to the left side of the chest and scapula. She denies shortness of breath. Reports a history of dehydration and states that she feels dehydrated and weak. Patient of Dr. Doty. History of COPD and appendectomy. Reports that symptoms started yesterday.. Historical: - Allergies: 07:59 PENICILLINS; ll1 - PMHx: 07:59 Anxiety; Diabetes - NIDDM; Hypertension; Hypothyroidism; UTI; COPD; ll1 - PSHx: 07:59 Appendectomy; leg SX; ll1 - Immunization history:: Client reports receiving the 2nd dose of the Covid vaccine. - Social history:: Smoking status: Patient denies any tobacco usage or history of. ROS: 07:55 Eyes: Negative for injury, pain, redness, and discharge, ENT: Negative for injury, jh7 pain, and discharge, Neck: Negative for injury, pain, and swelling, Respiratory: Negative for shortness of breath, cough, wheezing, and pleuritic chest pain, Abdomen/GI: Negative for abdominal pain, nausea, vomiting, diarrhea, and constipation. 07:55 MS/Extremity: Negative for injury and deformity, Skin: Negative for injury, rash, and discoloration. 07:55 Constitutional: Positive for fatigue, Negative for fever. 07:55 Cardiovascular: Positive for chest pain, Negative for orthopnea, palpitations. 07:55 Back: Positive for pain at rest. 07:55 Neuro: Positive for weakness, Negative for loss of consciousness, syncope, visual changes. 07:55 All other systems are negative. Exam: 07:55 Constitutional: This is a well developed, well nourished patient who is awake, alert, jh7 and in no acute distress. Head/Face: Normocephalic, atraumatic. Eyes: Pupils equal round and reactive to light, extra-ocular motions intact. Lids and lashes normal. Conjunctiva and sclera are non-icteric and not injected. Cornea within normal limits. Periorbital areas with no swelling, redness, or edema. Neck: Trachea midline, no thyromegaly or masses palpated, and no cervical lymphadenopathy. Supple, full range of motion without nuchal rigidity, or vertebral point tenderness. No Meningismus. Cardiovascular: Regular rate and rhythm with a normal S1 and S2. No gallops, murmurs, or rubs. Normal PMI, no JVD. No pulse deficits. Respiratory: Lungs have equal breath sounds bilaterally, clear to auscultation and percussion. No rales, rhonchi or wheezes noted. No increased work of breathing, no retractions or nasal flaring. Abdomen/GI: Soft, non-tender, with normal bowel sounds. No distension or tympany. No guarding or rebound. No evidence of tenderness throughout. Back: No spinal tenderness. No costovertebral tenderness. Full range of motion. Skin: Warm, dry with normal turgor. Normal color with no rashes, no lesions, and no evidence of cellulitis. MS/ Extremity: Pulses equal, no cyanosis. Neurovascular intact. Full, normal range of motion. Neuro: Awake and alert, GCS 15, oriented to person, place, time, and situation. Motor strength 5/5 in all extremities. Sensory grossly intact. Normal gait. 07:55 Constitutional: The patient appears alert, awake. Vital Signs: 08:00 BP 120 / 59; Pulse 108; Resp 17; Temp 97.8; Pulse Ox 98% ; Weight 90.72 kg; Height 6 ll1 ft. 1 in. ; Pain 8/10; 08:00 BP 140 / 85 Supine; Pulse 104; ld1 08:04 BP 136 / 73 LA Sitting; Pulse 97; ld1 08:08 BP 81 / 37 Standing; Pulse 100; ld1 08:24 BP 132 / 84; Pulse 94; Resp 14; Pulse Ox 96% on R/A; ld1 08:59 BP 128 / 78; Pulse 95; Resp 16; Pulse Ox 100% on R/A; ld1 09:47 BP 127 / 86; Pulse 84; Resp 15; Pulse Ox 100% on R/A; ld1 10:31 BP 131 / 82; Pulse 82; Resp 18; Pulse Ox 99% on R/A; ko1 08:00 Body Mass Index 26.39 (90.72 kg, 185.42 cm) ll1 08:00 Pain Scale: Adult ll1 MDM: 07:52 Patient medically screened. [facility] 09:55 Differential diagnosis: pneumonia UTI, acute NM, dehydration, rhabdomyolysis. Data [facility] reviewed: vital signs, nurses notes, lab test result(s), EKG, radiologic studies, plain films. I considered the following discharge prescriptions or medication management in the emergency department Medications were administered in the Emergency Department. See MAR. Independent interpretation of the following test(s) in the Emergency Department EKG: See my EKG interpretation above. Historians other than the Patient: Friend: . Care significantly affected by the following chronic conditions: Diabetes, Hypertension. Counseling: I had a detailed discussion with the patient and/or guardian regarding the historical points, exam findings, and any diagnostic results supporting the discharge/admit diagnosis, to return to the emergency department if symptoms worsen or persist or if there are any questions or concerns that arise at home. Response to treatment: the patient's symptoms have markedly improved after treatment. 06/08 08:00 Order name: Basic Metabolic Panel; Complete Time: 08:59 [facility] 06/08 08:00 Order name: CBC with Diff; Complete Time: 08:32 [facility] 06/08 08:00 Order name: LFT's; Complete Time: :59 [facility] 06/08 08:00 Order name: Magnesium; Complete Time: 08:59 [facility] 06/08 08:00 Order name: NT PRO-BNP; Complete Time: 08:59 [facility] 06/08 08:00 Order name: PT-INR; Complete Time: 08:32 [facility] 06/08 08:00 Order name: Troponin HS; Complete Time: 08:59 [facility] 06/08 08:00 Order name: CK; Complete Time: 08:59 [facility] 06/08 08:11 Order name: Urinalysis W/Microscopic; Complete Time: 09:25 [facility] 06/08 09:28 Order name: Urine Culture EDKS 06/08 08:00 Order name: XRAY Chest (1 view); Complete Time: 08:32 [facility] 06/08 08:00 Order name: EKG; Complete Time: 08:01 [facility] 06/08 08:00 Order name: Cardiac monitoring; Complete Time: 08:07 [facility] 06/08 08:00 Order name: EKG - Nurse/Tech; Complete Time: 08:07 [facility] 06/08 08:00 Order name: IV Saline Lock; Complete Time: 08:22 [facility] 06/08 08:00 Order name: Labs collected and sent; Complete Time: 08: [facility] 06/08 08:00 Order name: O2 Per Protocol; Complete Time: 08:07 [facility] 06/08 08:00 Order name: O2 Sat Monitoring; Complete Time: 08: [facility] 06/08 08:02 Order name: Orthostatics; Complete Time: 08: [facility] 06/08 09:05 Order name: Misc. Order: ambulate after fluids; Complete Time: 09:08 [facility] EC:04 Rate is 102 beats/min. Rhythm is regular. QRS [place] is Normal. SD interval is normal at [facility] 106 msec. QRS interval is normal at 70 msec. QT interval is normal at 346 msec. No Q waves. T waves are Normal. No ST changes noted. Clinical impression: Sinus tachycardia. Administered Medications: 08:22 Drug: NS 0.9% IV 1000 ml Route: IV; Rate: 1 bolus; Site: left antecubital; ld1 09:47 Drug: Rocephin IV 1 grams Route: IV; Rate: 1 calculated rate; Site: left antecubital; ld1 09:47 Drug: NS 0.9% IV 1000 ml Route: IV; Rate: 1 bolus; Site: left antecubital; ld1 Disposition: 10:42 Co-signature as Attending Physician, Kong Chang MD I reviewed the patient's care rn provided by the Advanced Practice Provider and agree with the diagnosis and treatment plan. Disposition Summary: 06/08/23 10:11 Discharge Ordered Location: Home [facility] Problem: new [facility] Symptoms: have improved jh7 Condition: Stable 7 Diagnosis - Dehydration jh7 - Orthostatic hypotension 7 Followup: [facility] - With: Private Physician - When: 2 - 3 days - Reason: Recheck today's complaints Discharge Instructions: - Discharge Summary Sheet 7 - Dehydration, Adult jh7 - Orthostatic Hypotension jh7 Forms: - Medication Reconciliation Form 7 - Thank You Letter jh7 - Patient Portal Instructions 7 - Leadership Thank You Letter 7 - Work release form ko1 Signatures: Dispatcher [employer] Kong Garza MD MD rn Lewis, Lynsay, RN RN ll1 Amparo Gamez RN RN ld1 Addie Jonas, SEARCH PLANNER [place] [id number]
[2023-06-08 11:10] VITALS: BP 131/82; O2SAT 99
--- NOTE | 2023-06-09 15:25 | EKG ---
Test Date: 2023-06-08 Test Time: 08:04:53 Sash Repairer: [facility] ISAAC MEASUREMENT RESULTS: Intervals: Rate: 102 NV: 160 QRSD: 70 QT: 346 QTc: 450 [place]: P: 65 NV: 160 QRS: 56 T: 56 INTERPRETIVE STATEMENTS: Sinus tachycardia Otherwise normal ECG Compared to ECG 06/29/2020 11:35:04 Sinus rhythm no longer present Electronically Signed On 06-09-23 15:22:02 CDT by Curt Fermin
== END 2023-06-08 10:32 | disposition home or self-care (01) ==
LOC: ER 07:50
DX: E86.0 Dehydration (principal); I95.1 Orthostatic hypotension; M54.9 Dorsalgia, unspecified; J44.9 Chronic obstructive pulmonary disease, unspecified; E11.9 Type 2 diabetes mellitus without complications; I10 Essential (primary) hypertension; Z88.0 Allergy status to penicillin
CPT/HCPCS: 93005; 87088; 85025; 81001; 87086; 80048; 36415; 83735; 82550; 85610; 80076; 87077; 87186; 84484; 83880; 71045; 96374; 99285; J7030; J0696

== ENCOUNTER 2024-12-24 05:06 | Emergency (ER) | payer OTHER ==
[2024-12-24 05:37] LABS: Absolute Eosinophils 0.1 K/uL (0-0.5); Absolute Lymphocytes (CBC) 0.6 K/uL (0.7-4.9); Absolute Monocytes 0.5 K/uL (0.1-1.3); Absolute Neutrophil 4.2 K/uL (1.8-8.0); Basophils % 0.4 % (0-1.3); Eosinophils % 2.7 % (0-4.4); Hemoglobin 12.7 g/dL (12.0-15.0); Lymphocytes % 11.3 % (15.3-44.8); MCH 30.7 pg (27.0-35.0); MCHC 35.4 g/dL (32.0-36.0); MCV 86.8 fL (80-100); MPV 8.1 fL (7.6-11.3); Monocytes % 8.3 % (3.3-12.3); Neutrophils % 77.3 % (41.7-73.7); Nucleated Red Blood Cells % 0.4 % (0-0); Platelets 184 thou/uL (152-406); RBC Red Blood Cell Count 4.14 M/uL (3.86-4.86); Red Cell Distribution Width 13.5 % (12.1-15.2)
[2024-12-24] MEDS ORDERED: NA CHLORIDE 0.9% 1,000 ML ONE (05:37)
[2024-12-24 05:51] LABS: Anion Gap 8.8 mEq/L (5.0-15.0); BUN Blood Urea Nitrogen 25 mg/dL (7-18); Bicarbonate 26 mEq/L (21-32); Glomerular Filtration Rate 72 ml/min (=/>90); Glucose Level 105 mg/dL (74-106); Potassium 3.8 mEq/L (3.5-5.1); Sodium Level 139 mEq/L (136-145); Troponin High Sensitivity < 3.0 pg/mL (<58.9)
--- NOTE | 2024-12-24 06:54 | ER ---
Nurse's Notes [facility] Name: Serenity Nevarez Age: 64 yrs Sex: Female : 1960 Arrival Date: 12/24/2024 Time: 05:06 Bed 18 Private MD: Diagnosis: Vasovagal Syncope Presentation: 12/24 05:10 Chief complaint: EMS states: pt calls because she had several syncopal episodes, rg5 complaints of pains in the both knees. 05:10 Coronavirus screen: Client denies travel out of the [place] in the last 14 days. Ebola rg5 Screen: Patient negative for fever greater than or equal to 101.5 degrees Fahrenheit, and additional compatible Ebola Virus Disease symptoms. Initial Sepsis Screen: Does the patient meet any 2 criteria? No. Patient's initial sepsis screen is negative. Does the patient have a suspected source of infection? No. Patient's initial sepsis screen is negative. Risk Assessment: Do you want to hurt yourself or someone else? Patient reports no desire to harm self or others. Onset of symptoms was December 24, 2024. Care prior to arrival: Medication(s) given: Normal saline infusion, 1000 mL, IV initiated. 20 GA, in the left antecubital area, Glucose check: 118. 05:10 Method Of Arrival: EMS: [facility] rg5 05:10 Acuity: HUSAM 3 rg5 Triage Assessment: 05:10 General: Appears in no apparent distress. comfortable, Behavior is calm, cooperative, rg5 appropriate for age. Pain: Complains of pain in right leg and left knee Pain currently is 5 out of 10 on a pain scale. Quality of pain is described as aching. EENT: No deficits noted. Neuro: Level of Consciousness is awake, alert, obeys commands, Oriented to person, place, time, situation, Reports dizziness, a syncopal episode. Cardiovascular: Denies chest pain, Patient's skin is warm and dry. Respiratory: Airway is patent Trachea midline Respiratory effort is even, unlabored. GI: Abdomen is round non-distended, Abd is soft and non tender. GI: Reports constipation. : No signs and/or symptoms were reported regarding the genitourinary system. Derm: Skin is intact, Skin is dry, Skin is normal. Musculoskeletal: Circulation, motion, and sensation intact. Range of motion: intact in all extremities. Historical: - Allergies: 05:10 PENICILLINS; rg5 - PMHx: 05:10 Anxiety; COPD; Diabetes - NIDDM; Hypertension; Hypothyroidism; UTI; rg5 - PSHx: 05:10 Appendectomy; Leg sx; rg5 - Immunization history:: Adult Immunizations up to date. - Infectious Disease History:: Denies. - Social history:: Smoking status: Patient denies any tobacco usage or history of. Screenin:10 [facility] ED Fall Risk Assessment (Adult) History of falling in the last 3 months, rg5 including since admission Yes- fall prone (multiple falls) (3 pts) Confusion or Disorientation No (0 pts) Intoxicated or Sedated No (0 pts) Impaired Gait Yes (1 pt) Mobility Assist Device Used Yes (1 pt) Altered Elimination No (0 pt) Score/Fall Risk Level 0 - 2 = Low Risk Oriented to surroundings, Maintained a safe environment, Hourly rounding (assess needs \T\ fall precautionary measures) done. Abuse screen: Denies threats or abuse. Nutritional screening: No deficits noted. Tuberculosis screening: No symptoms or risk factors identified. Assessment: 05:23 General: Appears in no apparent distress. Neuro: Reports dizziness, a syncopal episode. rg5 Cardiovascular: Denies chest pain, Rhythm is sinus rhythm. 06:09 Reassessment: No changes from previously documented assessment. Patient and/or family rg5 updated on plan of care and expected duration. Pain level reassessed. Patient is alert, oriented x 3, equal unlabored respirations, skin warm/dry/pink. 07:00 Reassessment: DC ON HOLD FOR IVF COMPLETION. bp Vital Signs: 05:10 BP 133 / 78; Pulse 92; Resp 18; Temp 98.6; Pulse Ox 98% on R/A; Weight 90.72 kg; Height rg5 6 ft. 1 in. ; Pain 5/10; 06:09 BP 121 / 77; Pulse 88; Resp 18; Pulse Ox 97% on R/A; Pain 0/10; rg5 05:10 Body Mass Index 26.39 (90.72 kg, 185.42 cm) rg5 05:10 Pain Scale: Adult rg5 06:09 Pain Scale: Adult rg5 ED Course: 05:09 Patient arrived in ED. ec2 05:09 Vasquez Ervin MD is Attending Physician. ec2 05:09 Gaurav David, RN is Primary Nurse. rg5 05:10 Arm band placed on right wrist. EKG completed in triage. Results shown to MD. rg5 05:10 Patient has correct armband on for positive identification. Bed in low position. Call rg5 light in reach. Side rails up X 1. Door closed. Noise minimized. Warm blanket given. 05:10 No provider procedures requiring assistance completed. Maintain EMS IV. Dressing rg5 intact. Good blood return noted. Site clean \T\ dry. Gauge \T\ site: 20 g Left AC. Flushed with 10 mL NS. 05:18 Triage completed. rg5 05:23 EKG done, by ED staff, reviewed by Vasquez Ervin MD. oe 05:50 Basic Metabolic Panel Sent. oe 05:50 Troponin HS Sent. oe 06:36 XRAY Chest (1 view) In Process Unspecified. EDMS 07:10 Provided Education on: post er care. rg5 07:10 IV discontinued, bleeding controlled, No redness/swelling at site. Pressure dressing rg5 applied. Administered Medications: 05:14 Drug: NS 0.9% IV 2000 ml IV at 2 bolus Per protocol; to be given as a bolus over 60 rg5 minutes Route: IV; Rate: 2 bolus; Site: left antecubital; 06:58 Follow up: IV Status: Completed infusion; IV Intake: 2000ml rg5 Medication: 05:23 VIS not applicable for this client. rg5 Point of Care Testing: Blood Glucose: 05:10 Blood Glucose: 118 mg/dL; rg5 Ranges: Intake: 06:58 IV: 2000ml; Total: 2000ml. rg5 Outcome: 06:53 Discharge ordered by . ec2 07:10 Discharged to home ambulatory, rg5 07:10 Condition: stable 07:10 Discharge instructions given to patient, Instructed on discharge instructions, follow up and referral plans. 07:52 Patient left the ED. bp Signatures: Dispatcher [employer] Bridgre Pereira Brian, RN RN bp Vasquez Ervin MD MD ec2 Gaurav David, RN RN rg5 Corrections: (The following items were deleted from the chart) 06:16 05:23 Cardiovascular: Denies chest pain, Rhythm is rg5 rg5
--- NOTE | 2024-12-24 06:54 | EDPHYS ---
Physician Documentation [facility] Name: Serenity Nevarez Age: 64 yrs Sex: Female : 1960 Arrival Date: 12/24/2024 Time: 05:06 Bed 18 Private MD: ED Physician Vasquez Ervin HPI: 12/24 05:12 This 64 yrs old Female presents to ER via Unassigned with complaints of ec2 syncope. 05:12 Patient arrives today after syncopal episode. Patient reports she has dry mouth, states ec2 that she felt lightheaded when she stands. Denies any chest pain or shortness of breath, denies abdominal pain, no nausea or vomiting or diarrhea. No urinary complaints.. Historical: - Allergies: 05:10 PENICILLINS; rg5 - PMHx: 05:10 Anxiety; COPD; Diabetes - NIDDM; Hypertension; Hypothyroidism; UTI; rg5 - PSHx: 05:10 Appendectomy; Leg sx; rg5 - Immunization history:: Adult Immunizations up to date. - Infectious Disease History:: Denies. - Social history:: Smoking status: Patient denies any tobacco usage or history of. ROS: 05:12 Constitutional: as per hpi ec2 Exam: 05:12 Constitutional: GEN: NAD Head: atraumatic Eyes: EOMI Ears: External ears are ec2 normal. CV: regular rate LUNGS: no respiratory distress ABD: non-distended SKIN: no evidence of rashes MSK: no evidence of trauma Vital Signs: 05:10 BP 133 / 78; Pulse 92; Resp 18; Temp 98.6; Pulse Ox 98% on R/A; Weight 90.72 kg; Height rg5 6 ft. 1 in. ; Pain 5/10; 06:09 BP 121 / 77; Pulse 88; Resp 18; Pulse Ox 97% on R/A; Pain 0/10; rg5 05:10 Body Mass Index 26.39 (90.72 kg, 185.42 cm) rg5 05:10 Pain Scale: Adult rg5 06:09 Pain Scale: Adult rg5 MDM: 05:09 Medical Screening Exam initiated ec2 05:13 Data reviewed: vital signs, nurses notes. ED course: Patient arrives today for ec2 evaluation after syncopal episode. Examination yields well-appearing nontoxic individuals otherwise in no acute distress with reassuring examination. Will obtain lab work, EKG. DDx include processes such as anemia, electrolyte disturbances, dehydration.. 05:37 ED course: EKG independently reviewed and interpreted by me, shows normal sinus rhythm, ec2 rate of 88, no acute ST segment elevations, intervals are nonactionable.. 06:53 ED course: Patient ambulatory with improvement in symptoms and no recurrence of ec2 lightheadedness, will discharge home. Return precautions given.. 12/24 05:09 Order name: Basic Metabolic Panel; Complete Time: 05:53 ec2 12/24 05:09 Order name: CBC with Diff; Complete Time: 05:40 ec2 12/24 05:09 Order name: Troponin HS; Complete Time: 05:53 ec2 12/24 05:09 Order name: XRAY Chest (1 view); Complete Time: 07:36 ec2 12/24 05:09 Order name: Cardiac monitoring; Complete Time: 05:14 ec2 12/24 05:09 Order name: EKG - Nurse/Tech; Complete Time: 05:14 ec2 12/24 05:09 Order name: IV Saline Lock; Complete Time: 05:14 ec2 12/24 05:09 Order name: Labs collected and sent; Complete Time: 05:14 ec2 12/24 05:09 Order name: O2 Per Protocol; Complete Time: 05:14 ec2 12/24 05:09 Order name: O2 Sat Monitoring; Complete Time: 05:14 ec2 12/24 06:35 Order name: Misc. Order: ambulate; Complete Time: 06:58 ec2 12/24 07:10 Order name: Labs - recollect needed: recollect uring; Complete Time: 07:11 bd Administered Medications: 05:14 Drug: NS 0.9% IV 2000 ml IV at 2 bolus Per protocol; to be given as a bolus over 60 rg5 minutes Route: IV; Rate: 2 bolus; Site: left antecubital; 06:58 Follow up: IV Status: Completed infusion; IV Intake: 2000ml rg5 Point of Care Testing: Blood Glucose: 05:10 Blood Glucose: 118 mg/dL; rg5 Ranges: Critical Glucose Levels:Adult <50 mg/dl or >400 mg/dl <40 mg/dl or >180 mg/dl Disposition Summary: 03/18/25 06:53 Discharge Ordered Notes: Location: Home ec2 Condition: Stable ec2 Diagnosis - Vasovagal Syncope ec2 Followup: ec2 - With: Private Physician - When: - Reason: Re-evaluation by your physician Discharge Instructions: - Discharge Summary Sheet ec2 - Syncope, [id number] ec2 Forms: - Medication Reconciliation Form ec2 - Antibiotic Education ec2 - Prescription Opioid Use ec2 - Patient Portal Instructions ec2 - Leadership Thank You Letter ec2 Signatures: Dispatcher [employer] EDMS Kayleigh Cifuentes Edwin, MD MD ec2 Gaurav David RN RN rg5 Corrections: (The following items were deleted from the chart) 05:10 05:10 Chest Single View+RAD.RAD.BRZ ordered. EDMS EDMS 05:10 05:10 Urinalysis W/Microscopic+U.LAB.BRZ ordered. EDMS EDMS
--- NOTE | 2024-12-24 07:33 | RAD REPORT ---
Procedure: Chest Single View HISTORY: Syncope COMPARISON: 2022 FINDINGS: The lungs appear clear of acute infiltrate. No significant pleural effusion noted. The heart is normal size. IMPRESSION: No acute abnormality is displayed.
[2024-12-24 08:35] VITALS: TEMP 98.6
[2024-12-24 08:36] VITALS: BP 121/77; O2SAT 97
--- NOTE | 2024-12-25 12:33 | EKG ---
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
== END 2024-12-24 07:52 | disposition home or self-care (01) ==
LOC: ER 05:06
DX: R55 Syncope and collapse (principal); I10 Essential (primary) hypertension; F41.9 Anxiety disorder, unspecified
CPT/HCPCS: 96361; 93005; 85025; 80048; 36415; 84484; 71045; 96360; 99284; J7030

== ENCOUNTER 2025-07-14 10:33 | Emergency (ER) | payer OTHER ==
--- OUTSIDE RECORDS SUMMARY | 2025-07-14 10:37 | XMS REPORT | Continuity of Care Document ---
Author Name Unknown Address [address] [address] [address] [place] [address] [facility] Address [address] [address] [address] [place] [address] Care Team Providers Care River Captain Name Role Phone Leela Mitchell Attending Clinician Unavail able Problems Condition Name Condition Details Condition Category Status Onset Date Resolution Date Last Treatment Date Treating Clinician Comments Source Depressive disorder Depressive Disorder Problem Active 03-12 00:00: 00 [facility] [id number] Closed displaced fracture of fourth metatarsal bone of right foot, initial encounter Problem [facility] [id number] Closed displaced fracture of third metatarsal bone of right foot, initial encounter Problem [facility] [id number] Closed displaced fracture of second metatarsal bone of right foot, initial encounter Problem [facility] [id number] Chronic fatigue Problem [facility] [id number] Atrophic vaginitis Problem [facility] [id number] Major depressive disorder with single episode, in full remission Problem [facility] [id number] Lumbago with sciatica, right side Problem [facility] [id number] Pulmonary emphysema, unspecifie d emphysema type Problem [facility] [id number] MICHELLE (generaliz ed anxiety disorder) Problem [facility] [id number] Other chronic pain Problem [facility] [id number] Lumbago with sciatica, left side Problem [facility] [id number] Vitamin D insufficie ncy Problem [facility] [id number] Other obesity due to excess calories Problem [facility] [id number] Hyperlipid emia, mixed Problem [facility] 6826016 Primary insomnia Problem [facility] [id number] Acquired hypothyroi dism Problem Common [facility] [id number] Essential hypertensi on Problem [facility] [id number] BMI 32.0-32.9, adult Problem [facility] [id number] Other idiopathic scoliosis, unspecifie d spinal region Problem [facility] Ataxia (finding) Ataxia (finding) Active Problem 01/14/2021 [facility] Problem Active 2021-01-14 21:34:46 [facility] Hypothyroi dism (disorder) Hypothyroi dism (disorder) Active Problem 01/14/2021 [facility] Problem Active 2021-01-14 21:34:46 [facility] Lumbar radiculopa thy (disorder) Lumbar radiculopa thy (disorder) Active Problem 01/14/2021 [facility] Problem Active 2021-01-14 21:34:46 Mem[facility] Lumbar spondylosi s (disorder) Lumbar spondylosi s (disorder) Active Problem 01/14/2021 [facility] Problem Active 2021-01-14 21:34:46 [facility] Paresthesi a (finding) Paresthesi a (finding) Active Problem 01/14/2021 [facility] Problem Active 2021-01-14 21:34:46 [facility] Scoliosis deformity of spine (disorder) Scoliosis deformity of spine (disorder) Active Problem 01/14/2021 [facility] Problem Active 2021-01-14 21:34:46 [facility] Amnesia (finding) Amnesia (finding) Active Problem 01/14/2021 [facility] Problem Active 2021-01-14 21:34:46 [facility] Asthma (disorder) Asthma (disorder) Active Problem 01/14/2021 [facility] Problem Active 2021-01-14 21:34:46 Bong Zuleta Allergies, Adverse Reactions, Alerts Allergy Name Allergy Type Status Severity Reaction(s) Onset Date Inactive Date Treating Clinician Comments Source PENICILL INS Allergy to substanc e Active [facility] penicill in penicill in Active Bong Zuleta [id number] Drug allergy Active Unknown [facility] Social History Social Habit Start Date Stop Date Quantity Comments Source Sex Assigned At [facility] History of Tobacco Use [facility] Social History 2020-12-04 14:26:43 2020-12-04 14:26:43 [facility] Smoking Status Start Date Stop Date Source Never Smoker [facility] Former Smoker 2024-03-26 00:00:00 2024-03-26 00:00:00 [facility] Medications Ordered Medication Name Filled Medication Name Start Date Stop Date Current Medication? Ordering Clinician Indication Dosage Frequency Signature (SIG) Comments Components Source Ketorolac Tromethamin e Ketorolac Tromethamin e 02-26 00:00: 00 No 60mg [facility] busPIRone HCl 10 MG busPIRone HCl 10 MG 01-01 00:00: 00 No 1{table t} BID busPIRone HCl 10 MG Aspirin 81 81 MG Aspirin 81 81 MG 01-01 00:00: 00 No 1{table t} QD Aspirin 81 81 MG Carisoprodo l 350 MG Carisoprodo l 350 MG 01-01 00:00: 00 No BID Carisoprod ol 350 MG Vitamin D (Cholecalci ferol) 50 MCG (1999) Vitamin D (Cholecalci ferol) 50 MCG (1999) 3- 00:00: 00 No 1{capsu le} QD Vitamin D (Cholecalc iferol) 50 MCG (1999) baclofen 10 mg oral tablet 12-08 15:23: 00 Yes 10 mg = 1 tab, PO, BID, # 60 tab, 2 Refill(s), Pharmacy: [facility] #[id number], 175.26, cm, 12/04/20 8:24:00 [employer], Height, 94.545, kg, 12/04/20 8:24:00 [employer], Weight Bong Zuleta gabapentin 300 MG Oral Capsule 12-04 15:15: 00 Yes 300 mg = 1 cap, PO, BID, # 60 cap, 3 Refill(s), Pharmacy: [facility] #[id number], 175.26, cm, 12/04/20 8:24:00 [employer]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 bisoprolol fumarate 10 mg tablet Take 1 tablet every day by oral route. No 1 Q1D bisoprolol fumarate 10 mg tablet Take 1 tablet every day by oral route. [facility] doxepin doxepin No doxepin [facility] estradiol 0.01% (0.1 mg/gram) vaginal cream Insert 0.5 g 3 times a week by vaginal route at bedtime for 30 days. estradiol 0.01% (0.1 mg/gram) vaginal cream Insert 0.5 g 3 times a week by vaginal route at bedtime for 30 days. No .5g Q56H estradiol 0.01% (0.1 mg/gram) vaginal cream Insert 0.5 g 3 times a week by vaginal route at bedtime for 30 days. [facility] HYDROcodone -Acetaminop hen 7.5-325 MG HYDROcodone -Acetaminop hen 7.5-325 MG No 1{table t_as_ne eded} BID HYDROcodon e-Acetamin ophen 7.5-325 MG Pravastatin Sodium 20 MG Pravastatin Sodium 20 MG No 1{table t} QD Pravastati n Sodium 20 MG Amitriptyli ne HCl 25 MG Amitriptyli ne HCl 25 MG No 1{table t_at_be dtime} QD Amitriptyl ine HCl 25 MG Doxepin HCl 50 MG Doxepin HCl 50 MG No 1{capsu le_at_b edtime} QD Doxepin HCl 50 MG Albuterol Sulfate HFA 108 (90 Base) MCG/ACT Albuterol Sulfate HFA 108 (90 Base) MCG/ACT No 1{puff_ as_need ed} 6xD Albuterol Sulfate HFA 108 (90 Base) MCG/ACT DULoxetine HCl 30 MG DULoxetine HCl 30 MG No 1{capsu le} QD DULoxetine HCl 30 MG pravastatin 20 mg tablet Take 1 tablet every day by oral route. pravastatin 20 mg tablet Take 1 tablet every day by oral route. No 1 Q1D pravastati n 20 mg tablet Take 1 tablet every day by [facility] route. [facility] D Vitamin D No Vitamin D [facility] Vital Signs Vital Name Observation Time Observation Value Comments S ource Body Weight 2024-03-12 00:00:00 231 [lb_av] [facility] BP Diastolic 2024-03-12 00:00:00 68 mm[Hg] [facility] BMI (Body Mass Index) 2024-03-12 00:00:00 31.3 kg/m2 [facility] Height 2024-03-12 00:00:00 72 [in_i] [facility] BP Systolic 2024-03-12 00:00:00 145 mm[Hg] [facility] height 2024-02-27 14:40:00 70 [in_i] Commo n [facility] weight 2024-02-27 14:40:00 229 [lb_av] Comm on [facility] temperature 2024-02-27 14:40:00 97.7 [degF] Com mon [facility] bmi 2024-02-27 14:40:00 32.85 kg/m2 Comm on [facility] oximetry 2024-02-27 14:40:00 96 % Commo n [facility] respiratory rate 2024-02-27 14:40:00 17 /min [facility] blood pressure systolic 2024-02-27 14:40:00 126 mm[Hg] [facility] blood pressure diastolic 2024-02-27 14:40:00 68 mm[Hg] [facility] height 2024-01-02 14:00:00 70 [in_i] Commo n [facility] weight 2024-01-02 14:00:00 224 [lb_av] Comm on [facility] temperature 2024-01-02 14:00:00 98.1 [degF] Com mon [facility] bmi 2024-01-02 14:00:00 32.14 kg/m2 Comm on [facility] oximetry 2024-01-02 14:00:00 96 % Commo n [facility] respiratory rate 2024-01-02 14:00:00 17 /min [facility] blood pressure systolic 2024-01-02 14:00:00 139 mm[Hg] [facility] blood pressure diastolic 2024-01-02 14:00:00 80 mm[Hg] [facility] Systolic (mm Hg) 2020-12-04 14:24:00 [facility] Song Diastolic (mm Hg) 2020-12-04 14:24:00 [facility] Heart Rate 2020-12-04 14:24:00 [facility] Respitory Rate 2020-12-04 14:24:00 [facility] Height 2020-12-04 14:24:00 175.26 cm [facility] Weight 2020-12-04 14:24:00 [facility] BMI Calculated 2020-12-04 14:24:[facility] Systolic (mm Hg) 2020-11-17 21:43:00 [facility] Diastolic (mm Hg) 2020-11-17 21:43:00 [facility] Song Heart Rate 2020-11-17 21:43:00 [facility] Respitory Rate 2020-11-17 21:43:00 [facility] Height 2020-11-17 21:43:00 182.88 cm [facility] Weight 2020-11-17 21:43:00 [facility] BMI Calculated 2020-11-17 21:43:00 [facility] Procedures Procedure Date / Time Performed Performing Clinicia n Source MAMMO, screening, digital, bilateral 2024-03-12 00:00:00 [facility] DEXA 2024-03-12 00:00:00 [facility] 2023-10-09 00:00:00 [facility] Appendectomy [facility] Appendectomy [facility] n Encounters Start Date/Time End Date/Time Encounter Type Admission Type Attending [facility] Facility Care Department Encounter ID Source 2024-01-02 13:36:00 Outpatient Leela Mitchell [facility] ST[facility] [id number] [facility] 2023-12-18 14:14:01 Outpatient Leela Mitchell ST[facility] STLMLC [id number] [facility] 2023-12-06 10:38:01 Outpatient [facility] STLC [id number] [facility] 2022-09-15 14:20:07 Outpatient STLMLC STLMLC [id number] [facility] 2024-03-28 00:00:00 2024-03-28 00:00:00 (TEL) STLC STLC [id number] [facility] 2024-03-12 00:00:00 2024-03-12 00:00:00 KAREL Webb: Sarthak Davila, [address] [address], [place] [address] , Ph. Formerly [facility] - GC_[id number]_La john Cote* [id number] [facility] 2024-03-06 00:00:00 2024-03-06 00:00:00 (TEL) STLMLC STLMLC [id number] [facility] 2024-02-28 00:00:00 2024-02-28 00:00:00 (TEL) STLMLC STLMLC [id number] [facility] 2024-02-27 00:00:00 2024-02-27 00:00:00 SUB ANNUAL [facility] VISIT STLMLC STLMLC [id number] [facility] 2024-02-27 00:00:00 2024-02-27 00:00:00 (TEL) STLMLC STLMLC [id number] [facility] 2024-02-27 00:00:00 2024-02-27 00:00:00 OFFICE VISIT ESTAB PT LEVEL 4 STLMLC STLMLC [id number] [facility] 2024-01-12 00:00:00 2024-01-12 00:00:00 (TEL) STLMLC STLMLC [id number] [facility] 2024-01-02 00:00:00 2024-01-02 00:00:00 OFFICE VISIT ESTAB PT LEVEL 4 STLMLC STLMLC [id number] [facility] 2024-01-02 00:00:00 2024-01-02 00:00:00 (TEL) STLMLC STLMLC [id number] [facility] 2021-01-12 14:45:00 2021-01-12 14:45:00 Ambulatory Pre-Reg nullFlavo r [facility] [id number] Bong Zuleta 2020-12-04 14:15:00 2020-12-05 05:59:59 Outpatient nullFlavo r [facility] [id number] Bong Zuleta 2020-12-01 19:50:14 2020-12-03 05:59:59 Outside Medical Records nullFlavo r [facility] [id number] Bong Zuleta 2020-11-17 21:30:00 2020-11-18 05:59:59 Outpatient nullFlavo r [facility] [id number] Bong Zuleta
[2025-07-14] MEDS ORDERED: KETOROLAC 30 MG/ML INJ ONE (11:26)
[2025-07-14] MEDS ORDERED: NA CHLORIDE 0.9% 1,000 ML ONE (11:26)
[2025-07-14] MEDS ORDERED: ONDANSETRON 4 MG/2 ML VIAL ONE (11:26)
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
[2025-07-14 11:53] LABS: Absolute Lymphocytes (CBC) 1.0 K/uL (0.7-4.9); Hematocrit 46.7 % (36.0-45.0); Hemoglobin 16.0 g/dL (12.0-15.0); MCH 30.2 pg (27.0-35.0); MCHC 34.3 g/dL (32.0-36.0); MCV 88.1 fL (80-100); MPV 8.4 fL (7.6-11.3); Nucleated RBC Absolute Count 0.0 (0-0); Nucleated Red Blood Cells % 0.1 % (0-0); RBC Red Blood Cell Count 5.31 M/uL (3.86-4.86); White Blood Count 7.30 thou/uL (4.3-10.9)
[2025-07-14 12:06] LABS: Urine Culture Reflex Order NOT NEEDED; Urine Granular Casts 0-5 /LPF (None Seen); Urine Microscopic Reflex YN ORDER UMIC
[2025-07-14 12:11] LABS: ALT/SGPT 17.0 U/L (13-56); AST/SGOT 12.0 U/L (15-37); Albumin 3.8 g/dL (3.4-5.0); Albumin/Globulin Ratio 1.0 (1.1-1.8); Alkaline Phosphatase 95.0 U/L (45-117); Anion Gap 11.8 mEq/L (5.0-15.0); BUN Blood Urea Nitrogen 22.0 mg/dL (7-18); Bilirubin Indirect, Calculated 0.7 mg/dL (0.2-0.8); Globulin 4.0 g/dL (2.3-3.5); Glucose Level 96.0 mg/dL (74-106); Magnesium 2.1 mg/dL (1.6-2.4); Potassium 3.8 mEq/L (3.5-5.1)
[2025-07-14] MEDS ORDERED: MORPHINE 4 MG/ML SYR ONE (12:33)
--- NOTE | 2025-07-14 13:06 | ER ---
Nurse's Notes [facility] Name: Serenity Nevarez Age: 64 yrs Sex: Female : 1960 Arrival Date: 07/14/2025 Time: 10:33 Bed 14 Private MD: Diagnosis: Low back pain-herniated disc;UTI/ Urinary tract infection, site not specified Presentation: 07/14 10:43 Chief complaint: Patient states: one week ago started having severe back pain that me1 causes her to have n/v. Reports dizziness that is worse when she stands and c/o pain to her "bones in the legs". Pain 05/18. Coronavirus screen: Vaccine status: Patient reports receiving the 2nd dose of the covid vaccine. Ebola Screen: No symptoms or risks identified at this time. Initial Sepsis Screen: Does the patient meet any 2 criteria? HR > 90 bpm. Does the patient have a suspected source of infection? No. Patient's initial sepsis screen is negative. Risk Assessment: Do you want to hurt yourself or someone else? Patient reports no desire to harm self or others. Onset of symptoms was July 07, 2025. 10:43 Method Of Arrival: Wheelchair [facility] [place] 10:43 Acuity: HUSAM 3 me1 Triage Assessment: 10:45 General: Appears in no apparent distress. uncomfortable, Behavior is cooperative, bp appropriate for age, anxious. Pain: Complains of pain in back. EENT: No deficits noted. Neuro: No deficits noted. Cardiovascular: No deficits noted. Respiratory: No deficits noted. GI: No signs and/or symptoms were reported involving the gastrointestinal system. : Reports pain in lower back. Derm: No deficits noted. Musculoskeletal: Circulation, motion, and sensation intact. Range of motion: intact in all extremities. Historical: - Allergies: 10:45 PENICILLINS; me1 - PMHx: 10:45 Anxiety; COPD; Diabetes - NIDDM; Hypertension; Hypothyroidism; UTI; me1 10:46 scoliosis (Unknown); me1 - PSHx: 10:45 Appendectomy; Leg sx; me1 - Immunization history:: Adult Immunizations up to date. - Infectious Disease History:: Denies. - Social history:: Smoking status: Patient/guardian denies using tobacco, but has a distant history of tobacco abuse. Screenin:45 [facility] ED Fall Risk Assessment (Adult) History of falling in the last 3 months, bp including since admission No falls in past 3 months (0 pts) Confusion or Disorientation No (0 pts) Intoxicated or Sedated No (0 pts) Impaired Gait No (0 pts) Mobility Assist Device Used No (0 pt) Altered Elimination No (0 pt) Score/Fall Risk Level 0 - 2 = Low Risk Oriented to surroundings. Abuse screen: Denies threats or abuse. Denies injuries from another. Nutritional screening: No deficits noted. Tuberculosis screening: No symptoms or risk factors identified. Assessment: 10:45 General: SEE TRIAGE NOTE. Neuro: Level of Consciousness is awake, alert, obeys bp commands, Oriented to Appropriate for age. 12:05 Reassessment: Patient appears in no apparent distress at this time. Patient and/or kj2 family updated on plan of care and expected duration. Pain level reassessed. Patient is alert, oriented x 3, equal unlabored respirations, skin warm/dry/pink. 13:00 Reassessment: Patient appears in no apparent distress at this time. Patient and/or kj2 family updated on plan of care and expected duration. Pain level reassessed. Patient is alert, oriented x 3, equal unlabored respirations, skin warm/dry/pink. Vital Signs: 10:43 BP 131 / 91 Supine; Pulse 108; Resp 18; Temp 98.2; Pulse Ox 94% ; Weight 100.7 kg; bp Height 6 ft. 1 in. ; Pain 8/10; 11:15 BP 126 / 79; Pulse 100; Resp 16; Pulse Ox 94% ; bp 12:30 BP 146 / 104; Pulse 96; Resp 18; Pulse Ox 96% on R/A; kj2 13:15 BP 142 / 82; Pulse 90; Resp 20; Temp 98; Pulse Ox 100% on R/A; kj2 10:43 Body Mass Index 29.29 (100.70 kg, 185.42 cm) bp 10:43 Pain Scale: Adult bp ED Course: 10:35 Patient arrived in ED. mr 10:36 [facility]C [facility] kb 10:36 Joshua Corrales MD is Attending Physician. kb 10:43 Carlo Bustillos, RN is Primary Nurse. bp 10:45 Triage completed. me1 10:45 Patient has correct armband on for positive identification. bp 10:46 Arm band placed on Patient placed in an exam room. me1 10:56 CT Lumbar Spine Wo Con In Process Unspecified. EDMS 11:27 EKG done, by investment recovery technician. reviewed by Humaira FORD. ts3 11:30 Initial lab(s) drawn, by me, sent to lab. Inserted saline lock: 22 gauge in right bp wrist, using aseptic technique. Blood collected. Flushed with 10 mL NS. 13:10 No provider procedures requiring assistance completed. IV discontinued, intact, kj2 bleeding controlled, No redness/swelling at site. Pressure dressing applied. 13:12 Provided Education on: call light. kj2 Administered Medications: 11:30 Drug: NS 0.9% IV 1000 ml IV at 1000 ml once; to be given as a bolus over 60 minutes bp Route: IV; Rate: 1000 ml; Site: right wrist; 13:31 Follow up: IV Status: Completed infusion; IV Intake: 1000ml kj2 11:30 Drug: Ketorolac IVP 15 mg IVP once Route: IVP; Site: right wrist; bp 13:11 Follow up: Response: No adverse reaction kj2 11:30 Drug: Ondansetron IVP 4 mg IVP once; over 2 minutes Route: IVP; Site: right wrist; bp 13:11 Follow up: Response: No adverse reaction kj2 12:45 Drug: morphine IVP or IV 4 mg IVP once over 4 mins Route: IVP; Infused Over: 4 mins; kj2 Site: right wrist; 13:11 Follow up: Response: No adverse reaction kj2 Medication: 12:45 VIS not applicable for this client. kj2 Intake: 13:31 IV: 1000ml; Total: 1000ml. kj2 Outcome: 13:05 Discharge ordered by . pat 13:12 Discharged to home ambulatory, kj2 13:12 Condition: stable 13:12 Discharge instructions given to patient, Instructed on discharge instructions, follow up and referral plans. Demonstrated understanding of instructions, follow-up care, 13:32 Patient left the ED. kj2 Signatures: Dispatcher [employer] EDMS Humiara Cote FNP-C PESTICIDE APPLICATOR-Ckb Lassiter, Jaz, Reg Reg mr Carlo Bustillos, RN RN bp Renetta Mancilla RN RN me1 Tasia Mcarthur, RN RN kj2 Janell Lei ts3 Corrections: (The following items were deleted from the chart) 10:46 10:45 PMHx: scoliosis (UTI); me1 me1 11:34 10:43 BP 131 / 91; Pulse 108bpm; Resp 18bpm; Pulse Ox 94%; Temp 98.2F; 100.7 kg; Height bp 6 ft. 1 in.; BMI: 29.2; Pain 8/10, Adult; me1
--- NOTE | 2025-07-14 13:06 | EDPHYS ---
Physician Documentation [facility] Name: Serenity Nevarez Age: 64 yrs Sex: Female : 1960 Arrival Date: 07/14/2025 Time: 10:33 Bed 14 Private MD: ED Physician Joshua Corrales HPI: 07/14 10:46 This 64 yrs old Female presents to ER via Wheelchair with complaints of Back Pain, kb Dehydration. 10:46 Pt is a 64 year old female who presents for lower back pain, nausea, vomiting, kb dehydration, dizziness upon standing that started one week ago. Dr Doty sent her over for IV fluids, CT lumbar spine. Pt states she has a history of scoliosis and has had this pain in the past, but it hasn't bothered her for a while. . Historical: - Allergies: 10:45 PENICILLINS; me1 - PMHx: 10:45 Anxiety; COPD; Diabetes - NIDDM; Hypertension; Hypothyroidism; UTI; me1 10:46 scoliosis (Unknown); me1 - PSHx: 10:45 Appendectomy; Leg sx; me1 - Immunization history:: Adult Immunizations up to date. - Infectious Disease History:: Denies. - Social history:: Smoking status: Patient/guardian denies using tobacco, but has a distant history of tobacco abuse. ROS: 10:46 Constitutional: As per HPI kb Exam: 10:46 Constitutional: This is a well developed, well nourished patient who is awake, alert, kb and in no acute distress. Head/Face: Normocephalic, atraumatic. ENT: Moist Mucous membranes Cardiovascular: Regular rate Respiratory: Respirations even and unlabored. No increased work of breathing. Talking in full sentences Skin: Warm, dry with normal turgor. Normal color. MS/ Extremity: Pulses equal, no cyanosis. Neurovascular intact. Full, normal range of motion. Neuro: Awake and alert, GCS 15, oriented to person, place, time, and situation. 10:46 Back: pain, that is moderate, of the low back area, 12:59 ECG was reviewed by the Attending Physician. kb Vital Signs: 10:43 BP 131 / 91 Supine; Pulse 108; Resp 18; Temp 98.2; Pulse Ox 94% ; Weight 100.7 kg; bp Height 6 ft. 1 in. ; Pain 8/10; 11:15 BP 126 / 79; Pulse 100; Resp 16; Pulse Ox 94% ; bp 12:30 BP 146 / 104; Pulse 96; Resp 18; Pulse Ox 96% on R/A; kj2 13:15 BP 142 / 82; Pulse 90; Resp 20; Temp 98; Pulse Ox 100% on R/A; kj2 10:43 Body Mass Index 29.29 (100.70 kg, 185.42 cm) bp 10:43 Pain Scale: Adult bp MDM: 10:36 Medical Screening Exam initiated kb 13:03 Differential diagnosis: sciatica, Herniated disc UTI, chronic pain. Data reviewed: kb vital signs, nurses notes. Historians other than the Patient: Family Member: family. Counseling: I had a detailed discussion with the patient and/or guardian regarding the historical points, exam findings, and any diagnostic results supporting the discharge/admit diagnosis, lab results, radiology results, the need for outpatient follow up, a family practitioner, to return to the emergency department if symptoms worsen or persist or if there are any questions or concerns that arise at home. ED course: Pt denies any urinary symptoms, but states her urine did have an odor when she got the urine sample. Will treat with antibiotics. . 07/14 10:41 Order name: Basic Metabolic Panel; Complete Time: 12:28 kb 07/14 10:41 Order name: CBC with Diff; Complete Time: 12:02 kb 07/14 10:41 Order name: Hepatic Function; Complete Time: 12:28 kb 07/14 10:41 Order name: Magnesium; Complete Time: 12:28 kb 07/14 10:41 Order name: UA Rfx Floyd Cult if indicated; Complete Time: 12:09 kb 07/14 10:41 Order name: CT Lumbar Spine Wo Con; Complete Time: 11:30 kb 07/14 10:41 Order name: Cardiac monitoring; Complete Time: 11:27 kb 07/14 10:41 Order name: EKG - Nurse/Tech; Complete Time: 11:27 kb 07/14 10:41 Order name: IV Saline Lock; Complete Time: 11:30 kb 07/14 10:41 Order name: Labs collected and sent; Complete Time: 11:30 kb 07/14 10:41 Order name: NPO; Complete Time: 11:30 kb 07/14 10:41 Order name: O2 Per Protocol; Complete Time: 11:30 kb 07/14 10:41 Order name: O2 Sat Monitoring; Complete Time: 11:28 kb 07/14 10:41 Order name: Orthostatics; Complete Time: 11:30 kb EC:59 Rate is 92 beats/min. Rhythm is regular. QRS [place] is Normal. MS interval is normal at kb 168 msec. QRS interval is normal at 72 msec. QT interval is normal at 445 msec. Administered Medications: 11:30 Drug: NS 0.9% IV 1000 ml IV at 1000 ml once; to be given as a bolus over 60 minutes bp Route: IV; Rate: 1000 ml; Site: right wrist; 13:31 Follow up: IV Status: Completed infusion; IV Intake: 1000ml kj2 11:30 Drug: Ketorolac IVP 15 mg IVP once Route: IVP; Site: right wrist; bp 13:11 Follow up: Response: No adverse reaction kj2 11:30 Drug: Ondansetron IVP 4 mg IVP once; over 2 minutes Route: IVP; Site: right wrist; bp 13:11 Follow up: Response: No adverse reaction kj2 12:45 Drug: morphine IVP or IV 4 mg IVP once over 4 mins Route: IVP; Infused Over: 4 mins; kj2 Site: right wrist; 13:11 Follow up: Response: No adverse reaction kj2 Disposition Summary: 07/14/25 13:05 Discharge Ordered Notes: Location: Home kb Condition: Stable kb Diagnosis - Low back pain - herniated disc kb - UTI/ Urinary tract infection, site not specified kb Followup: kb - With: Emergency Department - When: As needed - Reason: Worsening of condition Followup: kb - With: Private Physician - When: 2 - 3 days - Reason: Recheck today's complaints, Continuance of care, Re-evaluation by your physician Discharge Instructions: - Discharge Summary Sheet kb - Urinary Tract Infection, Adult, [id number] kb - Chronic Back Pain, [id number] kb - Herniated Disk, [id number] kb Forms: - Medication Reconciliation Form kb - Antibiotic Education kb - Prescription Opioid Use kb - Patient Portal Instructions kb - Leadership Thank You Letter kb Prescriptions: - Macrobid 100 mg Oral Capsule - take 1 capsule ORAL route every 12 hours for 10 days; 20 capsule; Refills: 0, kb Product Selection Permitted Signatures: Dispatcher [employer] EDMS Humaira Cote, SHREDDER TENDER-C SHREDDER TENDER-Ckb Carlo Bustillos, RN RN bp Renetta Mancilla, RN RN me1 Tasia Mcarthur, RN RN kj2 Corrections: (The following items were deleted from the chart) 10:42 10:42 BASIC METABOLIC PANEL+C.LAB.BRZ ordered. EDMS EDMS 10:42 10:42 CBC+H.LAB.BRZ ordered. EDMS EDMS 10:42 10:42 HEPATIC FUNCTION+C.LAB.BRZ ordered. EDMS EDMS 10:42 10:42 MAGNESIUM+C.LAB.BRZ ordered. EDMS EDMS 10:42 10:42 UA Rfx Floyd Cult if indicated+U.LAB.BRZ ordered. EDMS EDMS 10:42 10:42 Spine Lumbar Wo Con+CT.RAD.BRZ ordered. EDMS EDMS 10:46 10:45 PMHx: scoliosis (UTI); me1 me1
[2025-07-14 13:47] VITALS: BP 142/82; TEMP 98; O2SAT 100
== END 2025-07-14 13:32 | disposition home or self-care (01) ==
LOC: ER 10:33
DX: N39.0 Urinary tract infection, site not specified (principal); M54.50 Low back pain, unspecified; E86.0 Dehydration; R11.2 Nausea with vomiting, unspecified; M41.9 Scoliosis, unspecified; F41.9 Anxiety disorder, unspecified; J44.9 Chronic obstructive pulmonary disease, unspecified; E11.9 Type 2 diabetes mellitus without complications; I10 Essential (primary) hypertension; E03.9 Hypothyroidism, unspecified
CPT/HCPCS: 96361; 93005; 85025; 81001; 80048; 36415; 83735; 80076; 72131; 96375; 96374; 99284; J1885; J2405; J7030